=== PATIENT | male | born 1955 | race Caucasian/White ===

== ENCOUNTER 2020-11-27 12:58 | Inpatient (IN) | payer BC ==
[2020-11-27 16:35] LABS: BASO % 0.5 % (0-2.0); EOS % 0.1 % (0-4.5); HEMOGLOBIN 17.5 GM/dL (11.7-16.9); LYMPH % 11.8 % (8-40); MCH 33.2 pg (25.7-33.7); MCHC 35.8 g/dl (32.0-35.9); MEAN CELL VOLUME 92.8 fl (80-96); MEAN PLT VOLUME 7.5 fl (7.5-11.1); MONO % 2.5 % (3.8-10.2); NEUT % 85.1 % (42.8-82.8); PLATELET COUNT 102 K/MM3 (134-434); RBC 5.28 M/mm3 (4.00-5.60)
[2020-11-27 16:52] LABS: CHLORIDE 106 mmol/L (98-107); POTASSIUM 3.8 mmol/L (3.5-5.1); SODIUM 136 mmol/L (136-145)
[2020-11-27 16:54] LABS: CALCIUM 9.8 mg/dL (8.5-10.1)
[2020-11-27 16:55] LABS: ALBUMIN 4.3 g/dl (3.4-5.0); ANION GAP 4 MMOL/L (8-16); BLOOD UREA NITROGEN 14.6 mg/dL (7-18); CO2 26 mmol/L (21-32); GLUCOSE,RANDOM 123 mg/dL (74-106)
[2020-11-27 16:58] LABS: CREATININE 0.7 mg/dL (0.55-1.3); SGOT/AST 76 U/L (15-37); SGPT/ALT 227 U/L (13-61)
[2020-11-27 16:59] LABS: BILIRUBIN,TOTAL 0.9 mg/dL (0.2-1); TOT PROT 8.4 g/dl (6.4-8.2)
[2020-11-27 17:01] LABS: ALK PHOS 69 U/L (45-117)
[2020-11-27] MEDS ORDERED: morphine CARPU-JECT 4 MG/1 ML DISP.SYRIN IVPUSH ONE (17:05)
[2020-11-27] MEDS ORDERED: morphine SULFATE 4 MG/ML VIAL IVPUSH ONE (17:05)
[2020-11-27] MEDS ORDERED: morphine SULFATE 4 MG/ML VIAL ONE (17:08)
[2020-11-27] MEDS ORDERED: NICARDIPINE 25 MG in DEXTROSE 5%-WATER - 240 ML IVPB SCH (17:15)
[2020-11-27 17:30] LABS: ERYTHROCYTE SEDIMENTATION RATE 8 mm/hr (0-20)
[2020-11-27 18:08] LABS: INR 1.13 (0.83-1.09); PROTHROMBIN TIME (PATIENT) 13.6 SEC (9.7-13.0)
[2020-11-27 18:11] LABS: ACTIVATED PTT 33.8 SECONDS (25.2-36.5)
[2020-11-27] MEDS ORDERED: hydrALAZINE HCL 50 MG TABLET (FP) PO ONE (18:27)
[2020-11-27] MEDS ORDERED: hydrALAZINE HCL 20 MG/ML VIAL IVPUSH ONE (18:27)
[2020-11-27] MEDS: ENOXAPARIN NA (PORCINE) 40 MG/0.4 ML DISP.SYRIN SQ SCH (18:54)
[2020-11-27 19:55] LABS: EPI CELLS 12 /uL (0-25.1); HYALINE CASTS 2 /uL (0-3.1); URINE APPEARANCE CLEAR; URINE BACTERIA 143 /uL (0-1359); URINE BILIRUBIN 1+ (NEGATIVE); URINE COLOR DK YELLOW; URINE GLUCOSE (UA) NEGATIVE (NEGATIVE); URINE KETONE 1+ (NEGATIVE); URINE LEUK ESTERASE NEGATIVE (NEGATIVE); URINE NITRITE NEGATIVE (NEGATIVE); URINE PROTEIN 3+ (NEGATIVE); URINE RBC 11 /uL (0-23.9); URINE WBC 14 /uL (0-25.8)
[2020-11-27] MEDS: MUPIROCIN 2% TOPICAL OINTMENT FOR DECOLONIZATION NS SCH (22:36)
[2020-11-27] MEDS: CHLORHEXIDINE GLUCONATE 4% CLEANSER FOR DECOLONIZATION TP SCH (22:37)
[2020-11-27] MEDS: NICARDIPINE 25 MG in DEXTROSE 5%-WATER - 240 ML IVPB SCH (22:40)
[2020-11-28 07:08] LABS: HEMATOCRIT 48.9 % (35.4-49); HEMOGLOBIN 17.5 GM/dL (11.7-16.9); MCH 33.3 pg (25.7-33.7); MCHC 35.7 g/dl (32.0-35.9); MEAN CELL VOLUME 93.3 fl (80-96); MEAN PLT VOLUME 7.5 fl (7.5-11.1); PLATELET COUNT 94 K/MM3 (134-434); RBC 5.25 M/mm3 (4.00-5.60); RDW 13.9 % (11.9-15.9)
[2020-11-28 07:19] LABS: ACTIVATED PTT 38.5 SECONDS (25.2-36.5)
[2020-11-28 07:20] LABS: INR 1.1 (0.83-1.09); PROTHROMBIN TIME (PATIENT) 13.3 SEC (9.7-13.0)
[2020-11-28 07:51] LABS: POTASSIUM 3.3 mmol/L (3.5-5.1)
[2020-11-28 07:53] LABS: BLOOD UREA NITROGEN 14.7 mg/dL (7-18); CALCIUM 9.4 mg/dL (8.5-10.1)
[2020-11-28 07:54] LABS: MAGNESIUM 2.2 mg/dL (1.8-2.4)
[2020-11-28 07:57] LABS: CREATININE 0.7 mg/dL (0.55-1.3); PHOSPHOROUS 2.8 mg/dL (2.5-4.9)
[2020-11-28] MEDS: KCL 10 MEQ IVPB 10 MEQ/100 ML INFUS.BAG IVPB SCH ×3 (09:10→11:37)
[2020-11-28] MEDS: MUPIROCIN 2% TOPICAL OINTMENT FOR DECOLONIZATION NS SCH ×2 (10:02→22:34)
[2020-11-28] MEDS: ENOXAPARIN NA (PORCINE) 40 MG/0.4 ML DISP.SYRIN SQ SCH (10:04)
[2020-11-28 12:14] LABS: POTASSIUM 3.1 mmol/L (3.5-5.1)
[2020-11-28 12:16] LABS: CALCIUM 9.3 mg/dL (8.5-10.1)
[2020-11-28 12:17] LABS: ALBUMIN 3.9 g/dl (3.4-5.0); BLOOD UREA NITROGEN 12.9 mg/dL (7-18)
[2020-11-28 12:20] LABS: CREATININE 0.6 mg/dL (0.55-1.3)
[2020-11-28 12:22] LABS: BILIRUBIN,TOTAL 1.3 mg/dL (0.2-1); TOT PROT 7.8 g/dl (6.4-8.2)
[2020-11-28] MEDS: NICARDIPINE 25 MG in DEXTROSE 5%-WATER - 240 ML IVPB SCH (13:05)
[2020-11-28] MEDS ORDERED: CARVEDILOL 6.25 MG TABLET (FP) PO SCH (15:43)
[2020-11-28] MEDS: CHLORHEXIDINE GLUCONATE 4% CLEANSER FOR DECOLONIZATION TP SCH (22:34)
[2020-11-29] MEDS: NICARDIPINE 25 MG in DEXTROSE 5%-WATER - 240 ML IVPB SCH ×2 (01:18→02:50)
[2020-11-29 06:50] LABS: HEMATOCRIT 48.3 % (35.4-49); MCH 32.8 pg (25.7-33.7); MCHC 35.3 g/dl (32.0-35.9); MEAN CELL VOLUME 93.1 fl (80-96); MEAN PLT VOLUME 7.8 fl (7.5-11.1); PLATELET COUNT 93 K/MM3 (134-434); RBC 5.19 M/mm3 (4.00-5.60); RDW 13.7 % (11.9-15.9); WHITE BLOOD COUNT 11.5 K/mm3 (4.0-10.0)
[2020-11-29 07:10] LABS: POTASSIUM 3.8 mmol/L (3.5-5.1)
[2020-11-29 07:18] LABS: ALBUMIN 3.5 g/dl (3.4-5.0); BLOOD UREA NITROGEN 16.2 mg/dL (7-18)
[2020-11-29 07:19] LABS: BILIRUBIN,TOTAL 1.4 mg/dL (0.2-1)
[2020-11-29 07:20] LABS: TOT PROT 7.3 g/dl (6.4-8.2)
[2020-11-29 07:21] LABS: CREATININE 0.6 mg/dL (0.55-1.3)
[2020-11-29] MEDS ORDERED: niCARdipine HCL 25 MG/10 ML AMPUL IVPB ONE ×2 (07:40→18:08)
[2020-11-29] MEDS: MUPIROCIN 2% TOPICAL OINTMENT FOR DECOLONIZATION NS SCH ×2 (10:51→22:47)
[2020-11-29] MEDS: ENOXAPARIN NA (PORCINE) 40 MG/0.4 ML DISP.SYRIN SQ SCH (10:51)
[2020-11-29] MEDS ORDERED: MORPHINE SULFATE 2 MG/ML VIAL ONE (11:07)
[2020-11-29] MEDS: MORPHINE SULFATE 2 MG/ML VIAL IVPUSH PRN ×2 (11:08→20:39)
[2020-11-29] MEDS ORDERED: LOSARTAN POTASSIUM 50 MG TABLET PO SCH (12:30)
[2020-11-29 20:56] VITALS: BMI 31.6
[2020-11-29] MEDS: CHLORHEXIDINE GLUCONATE 4% CLEANSER FOR DECOLONIZATION TP SCH (22:47)
[2020-11-29] MEDS: CARVEDILOL 12.5 MG TABLET (FP) PO SCH (22:47)
[2020-11-30] MEDS: MORPHINE SULFATE 2 MG/ML VIAL IVPUSH PRN ×2 (04:16→10:22)
[2020-11-30] MEDS: NICARDIPINE 25 MG in DEXTROSE 5%-WATER - 240 ML IVPB SCH (04:25)
[2020-11-30 06:29] LABS: HEMATOCRIT 44.8 % (35.4-49); HEMOGLOBIN 16.3 GM/dL (11.7-16.9); MCH 33.8 pg (25.7-33.7); MCHC 36.4 g/dl (32.0-35.9); MEAN PLT VOLUME 7.6 fl (7.5-11.1); PLATELET COUNT 94 K/MM3 (134-434); RBC 4.81 M/mm3 (4.00-5.60); RDW 13.9 % (11.9-15.9); WHITE BLOOD COUNT 10.1 K/mm3 (4.0-10.0)
[2020-11-30 06:54] LABS: POTASSIUM 3.6 mmol/L (3.5-5.1)
[2020-11-30 06:55] LABS: ALBUMIN 3.4 g/dl (3.4-5.0); CALCIUM 8.6 mg/dL (8.5-10.1)
[2020-11-30 06:59] LABS: CREATININE 0.7 mg/dL (0.55-1.3)
[2020-11-30 07:01] LABS: TOT PROT 6.8 g/dl (6.4-8.2)
[2020-11-30] MEDS: ENOXAPARIN NA (PORCINE) 40 MG/0.4 ML DISP.SYRIN SQ SCH (09:52)
[2020-11-30] MEDS: CARVEDILOL 12.5 MG TABLET (FP) PO SCH ×2 (09:52→22:20)
[2020-11-30] MEDS: MUPIROCIN 2% TOPICAL OINTMENT FOR DECOLONIZATION NS SCH ×2 (09:53→22:20)
[2020-11-30] MEDS: LOSARTAN POTASSIUM 50 MG TABLET PO SCH (09:53)
[2020-11-30] MEDS: CHLORHEXIDINE GLUCONATE 4% CLEANSER FOR DECOLONIZATION TP SCH (22:20)
[2020-12-01] MEDS: MORPHINE SULFATE 2 MG/ML VIAL IVPUSH PRN ×3 (00:16→19:00)
[2020-12-01 07:25] LABS: BASO % 0.4 % (0-2.0); EOS % 3.1 % (0-4.5); HEMATOCRIT 48.6 % (35.4-49); HEMOGLOBIN 17.2 GM/dL (11.7-16.9); LYMPH % 27.9 % (8-40); MCH 33.5 pg (25.7-33.7); MCHC 35.3 g/dl (32.0-35.9); MEAN CELL VOLUME 94.9 fl (80-96); MEAN PLT VOLUME 8.1 fl (7.5-11.1); MONO % 8.4 % (3.8-10.2); NEUT % 60.2 % (42.8-82.8); PLATELET COUNT 114 K/MM3 (134-434); RBC 5.12 M/mm3 (4.00-5.60); RDW 13.9 % (11.9-15.9); WHITE BLOOD COUNT 11.5 K/mm3 (4.0-10.0)
[2020-12-01] MEDS ORDERED: GENTAMICIN SO4 80 MG/2 ML VIAL ONE ×2 (07:27→11:07)
[2020-12-01] MEDS ORDERED: THROMBIN (BOVINE) 5,000 UNIT VIAL TP ONE ×2 (07:35→10:19)
[2020-12-01 07:49] LABS: POTASSIUM 4.4 mmol/L (3.5-5.1)
[2020-12-01] MEDS ORDERED: LIDOCAINE 1%/EPI 1:100000 (50 ML MULTI DOSE VIAL) ONE (07:53)
[2020-12-01 07:57] LABS: ALBUMIN 3.6 g/dl (3.4-5.0); BLOOD UREA NITROGEN 31.1 mg/dL (7-18); MAGNESIUM 2.2 mg/dL (1.8-2.4)
[2020-12-01 08:01] LABS: PHOSPHOROUS 4.3 mg/dL (2.5-4.9)
[2020-12-01 08:02] LABS: BILIRUBIN,TOTAL 0.8 mg/dL (0.2-1); TOT PROT 7.6 g/dl (6.4-8.2)
[2020-12-01] MEDS ORDERED: PROPOFOL 20 ML ONE (08:46)
[2020-12-01] MEDS ORDERED: ROCURONIUM BROMIDE 50 MG/5 ML SYRINGE ONE ×2 (08:46→09:59)
[2020-12-01] MEDS ORDERED: MIDAZOLAM HCL 2 MG/2 ML SINGLE DOSE VIAL ONE (08:46)
[2020-12-01] MEDS: CARVEDILOL 12.5 MG TABLET (FP) PO SCH ×2 (08:50→09:00)
[2020-12-01] MEDS: MUPIROCIN 2% TOPICAL OINTMENT FOR DECOLONIZATION NS SCH ×2 (08:50→22:14)
[2020-12-01] MEDS: LOSARTAN POTASSIUM 50 MG TABLET PO SCH ×2 (08:51→10:01)
[2020-12-01] MEDS ORDERED: VANCOMYCIN 1,000 MG VIAL (RESTRICTED TO ID ONLY) ONE (08:54)
[2020-12-01] MEDS ORDERED: ceFAZolin SODIUM 1 GM VIAL ONE (08:54)
[2020-12-01] MEDS ORDERED: SODIUM CHLORIDE 0.9% P/F 10 ML VIAL IJ ONE (08:55)
[2020-12-01] MEDS ORDERED: ceFAZolin SODIUM 1 GM VIAL IVPB ONE ×2 (09:20)
[2020-12-01] MEDS ORDERED: VANCOMYCIN 1,000 MG VIAL (RESTRICTED TO ID ONLY) IVPB ONE ×2 (09:25)
[2020-12-01] MEDS ORDERED: ONDANSETRON 4 MG/2 ML VIAL ONE (09:49)
[2020-12-01] MEDS ORDERED: DEXAMETHASONE SOD PHOSPHATE 4 MG/1 ML VIAL ONE (09:49)
[2020-12-01] MEDS ORDERED: TRANEXAMIC ACID 1000 MG/10 ML VIAL ONE (09:56)
[2020-12-01] MEDS ORDERED: HYDROGEN PEROXIDE 473 ML PO ONE ×2 (10:19)
[2020-12-01] MEDS ORDERED: BACITRACIN 50,000 UNITS VIAL TP ONE ×2 (10:19)
[2020-12-01] MEDS ORDERED: GENTAMICIN SO4 80 MG/2 ML VIAL IVPB ONE ×2 (10:19)
[2020-12-01] MEDS ORDERED: GLYCOPYRROLATE 0.2 MG/1 ML VIAL ONE (12:33)
[2020-12-01] MEDS ORDERED: NEOSTIGMINE METHYLSULFATE 0.5 MG/1 ML - 10 ML MDV ONE (12:34)
[2020-12-01] MEDS ORDERED: BUPIVACAINE LIPOSOME/PF (EXPAREL) 266 MG/20 ML VIAL NR ONE ×2 (12:45→13:06)
[2020-12-01] MEDS ORDERED: BUPIVACAINE HCL/PF 0.5% (5MG/ML) 10 ML VIAL NR ONE ×2 (12:45→13:06)
[2020-12-01] MEDS ORDERED: oxyCODONE HCL 5 MG TABLET PO PRN ×2 (13:54)
[2020-12-01] MEDS ORDERED: HYDROmorphone HCl 2 MG/ML VIAL SQ PRN ×2 (13:54→14:04)
[2020-12-01] MEDS ORDERED: ONDANSETRON 4 MG/2 ML VIAL IVPUSH PRN ×2 (13:54→13:58)
[2020-12-01] MEDS ORDERED: PROMETHAZINE HCL 25 MG/1 ML VIAL IVPB PRN (13:58)
[2020-12-01] MEDS ORDERED: LACTATED RINGERS SOLUTION 1,000 ML IV SCH ×3 (14:00→16:45)
[2020-12-01] MEDS: CEFAZOLIN 2 GM/D5W 2 GM/50 ML ML IVPB SCH ×2 (16:51→20:29)
[2020-12-01] MEDS ORDERED: CARVEDILOL 12.5 MG TABLET (FP) PO SCH (18:33)
[2020-12-01] MEDS: CARVEDILOL 25 MG TABLET (FP) PO SCH ×2 (18:43→22:20)
[2020-12-01] MEDS ORDERED: LABETALOL HCL 5 MG/1 ML (100MG/20 ML VIAL) IVPUSH PRN (20:15)
[2020-12-01] MEDS ORDERED: LABETALOL HCL 5 MG/1 ML (100MG/20 ML VIAL) IVPUSH ONE (20:22)
[2020-12-01] MEDS ORDERED: CARVEDILOL 25 MG TABLET (FP) PO SCH (22:00)
[2020-12-01] MEDS ORDERED: MORPHINE SULFATE 2 MG/ML VIAL IVPUSH ONE (22:13)
[2020-12-01] MEDS: CHLORHEXIDINE GLUCONATE 4% CLEANSER FOR DECOLONIZATION TP SCH (22:15)
[2020-12-02] MEDS: MORPHINE SULFATE 2 MG/ML VIAL IVPUSH PRN ×4 (01:26→22:58)
[2020-12-02] MEDS: CEFAZOLIN 2 GM/D5W 2 GM/50 ML ML IVPB SCH (02:00)
[2020-12-02] MEDS ORDERED: TERAZOSIN HCL 2 MG CAPSULE PO SCH ×2 (02:56→22:00)
[2020-12-02] MEDS ORDERED: ALPRAZolam 0.25 MG TABLET PO ONE ×2 (05:13→22:00)
[2020-12-02] MEDS ORDERED: TERAZOSIN HCL 1 MG CAPSULE PO SCH (06:27)
[2020-12-02] MEDS: CARVEDILOL 25 MG TABLET (FP) PO SCH ×3 (06:39→21:25)
[2020-12-02 06:56] LABS: HEMATOCRIT 41.1 % (35.4-49); HEMOGLOBIN 14.9 GM/dL (11.7-16.9); MCH 33.3 pg (25.7-33.7); MCHC 36.4 g/dl (32.0-35.9); MEAN CELL VOLUME 91.6 fl (80-96); MEAN PLT VOLUME 7.8 fl (7.5-11.1); PLATELET COUNT 152 K/MM3 (134-434); RBC 4.49 M/mm3 (4.00-5.60); RDW 13.5 % (11.9-15.9); WHITE BLOOD COUNT 17.6 K/mm3 (4.0-10.0)
[2020-12-02 07:27] LABS: ALBUMIN 3.1 g/dl (3.4-5.0); CALCIUM 8.6 mg/dL (8.5-10.1); CREATININE 0.6 mg/dL (0.55-1.3)
[2020-12-02 07:28] LABS: BLOOD UREA NITROGEN 19.8 mg/dL (7-18)
[2020-12-02 07:30] LABS: BILIRUBIN,TOTAL 0.7 mg/dL (0.2-1); TOT PROT 6.6 g/dl (6.4-8.2)
[2020-12-02] MEDS ORDERED: PHENTOLAMINE MESYLATE 5 MG/2 ML VIAL IVPUSH ONE (07:43)
[2020-12-02] MEDS: LOSARTAN POTASSIUM 50 MG TABLET PO SCH (09:21)
[2020-12-02] MEDS: MUPIROCIN 2% TOPICAL OINTMENT FOR DECOLONIZATION NS SCH (09:21)
[2020-12-02] MEDS: ENOXAPARIN NA (PORCINE) 40 MG/0.4 ML DISP.SYRIN SQ SCH (09:22)
[2020-12-02] MEDS: NICARDIPINE 25 MG in DEXTROSE 5%-WATER - 240 ML IVPB SCH ×4 (12:26→18:15)
[2020-12-02] MEDS ORDERED: PT OWN MED DRAWER 7, Y5N ONE ×2 (12:29→16:25)
[2020-12-02] MEDS: DOXAZOSIN MESYLATE 1 MG TABLET PO SCH (12:33)
[2020-12-02] MEDS ORDERED: hydrALAZINE HCL 20 MG/ML VIAL IVPUSH ONE (20:14)
[2020-12-02] MEDS: CHLORHEXIDINE GLUCONATE 4% CLEANSER FOR DECOLONIZATION TP SCH (21:25)
[2020-12-03 07:56] LABS: POTASSIUM 3.8 mmol/L (3.5-5.1)
[2020-12-03 08:06] LABS: ALBUMIN 2.9 g/dl (3.4-5.0); CALCIUM 8.1 mg/dL (8.5-10.1)
[2020-12-03 08:07] LABS: BLOOD UREA NITROGEN 16.9 mg/dL (7-18); MAGNESIUM 1.7 mg/dL (1.8-2.4)
[2020-12-03 08:10] LABS: CREATININE 0.5 mg/dL (0.55-1.3); PHOSPHOROUS 2.4 mg/dL (2.5-4.9)
[2020-12-03 08:11] LABS: BILIRUBIN,TOTAL 1.1 mg/dL (0.2-1)
[2020-12-03] MEDS ORDERED: SODIUM CHLORIDE 1,000 ML IV SCH (08:30)
[2020-12-03 08:51] LABS: HEMATOCRIT 38.7 % (35.4-49); HEMOGLOBIN 14.3 GM/dL (11.7-16.9); MCH 33.2 pg (25.7-33.7); MEAN CELL VOLUME 89.7 fl (80-96); MEAN PLT VOLUME 7.7 fl (7.5-11.1); PLATELET COUNT 138 K/MM3 (134-434); RBC 4.31 M/mm3 (4.00-5.60); RDW 13.2 % (11.9-15.9); WHITE BLOOD COUNT 12.8 K/mm3 (4.0-10.0)
[2020-12-03] MEDS ORDERED: PT OWN MED DRAWER 7, Y5N ONE ×2 (10:42→15:10)
[2020-12-03] MEDS: ENOXAPARIN NA (PORCINE) 40 MG/0.4 ML DISP.SYRIN SQ SCH (10:47)
[2020-12-03] MEDS: LOSARTAN POTASSIUM 50 MG TABLET PO SCH (10:47)
[2020-12-03] MEDS: CARVEDILOL 25 MG TABLET (FP) PO SCH ×2 (10:47→21:56)
[2020-12-03] MEDS: DOXAZOSIN MESYLATE 1 MG TABLET PO SCH (11:28)
[2020-12-03] MEDS ORDERED: NIFEdipine E.R. 30 MG TABLET PO SCH (12:30)
[2020-12-03] MEDS ORDERED: MAGNESIUM SULF 50% (8.12 MEQ/2 ML-1 GM VIAL) IVPB ONE (12:45)
[2020-12-03] MEDS ORDERED: POTASSIUM PHOSPHATE 15 MM in DEXTROSE 5%-WATER - 250 ML IVPB ONE (13:00)
[2020-12-03] MEDS ORDERED: DOXAZOSIN MESYLATE 1 MG TABLET PO ONE (13:30)
[2020-12-03 14:34] LABS: POTASSIUM 3.5 mmol/L (3.5-5.1)
[2020-12-03 14:36] LABS: CALCIUM 7.2 mg/dL (8.5-10.1)
[2020-12-03 14:37] LABS: BLOOD UREA NITROGEN 15.4 mg/dL (7-18)
[2020-12-03 14:40] LABS: CREATININE 0.4 mg/dL (0.55-1.3)
[2020-12-03] MEDS ORDERED: NIFEdipine E.R 60 MG TABLET PO SCH (18:23)
[2020-12-03] MEDS: NICARDIPINE 25 MG in DEXTROSE 5%-WATER - 240 ML IVPB SCH ×2 (21:00→23:33)
[2020-12-04] MEDS: LOSARTAN POTASSIUM 50 MG TABLET PO SCH (09:48)
[2020-12-04] MEDS: CARVEDILOL 25 MG TABLET (FP) PO SCH ×2 (09:48→22:23)
[2020-12-04] MEDS ORDERED: PT OWN MED DRAWER 7, Y5N ONE (09:52)
[2020-12-04] MEDS: ENOXAPARIN NA (PORCINE) 40 MG/0.4 ML DISP.SYRIN SQ SCH (09:52)
[2020-12-04] MEDS: DOXAZOSIN MESYLATE 1 MG TABLET PO SCH (09:53)
[2020-12-04] MEDS ORDERED: DOXAZOSIN MESYLATE 1 MG TABLET PO SCH (10:00)
[2020-12-05] MEDS ORDERED: DOCUSATE SODIUM 100 MG CAPSULE (FP) PO PRN (06:17)
[2020-12-05] MEDS ORDERED: ACETAMINOPHEN 325 MG TABLET (FP) PO ONE (06:30)
[2020-12-05] MEDS ORDERED: oxyCODONE HCL 5 MG TABLET PO ONE (06:30)
[2020-12-05 06:45] LABS: BLOOD UREA NITROGEN 19.6 mg/dL (7-18)
[2020-12-05 06:48] LABS: CREATININE 0.7 mg/dL (0.55-1.3)
[2020-12-05 06:50] LABS: BILIRUBIN,TOTAL 0.8 mg/dL (0.2-1); TOT PROT 6.3 g/dl (6.4-8.2)
[2020-12-05 06:55] LABS: CALCIUM 8.9 mg/dL (8.5-10.1)
[2020-12-05 07:50] LABS: HEMATOCRIT 40.4 % (35.4-49); HEMOGLOBIN 14.7 GM/dL (11.7-16.9); MCH 33.6 pg (25.7-33.7); MCHC 36.4 g/dl (32.0-35.9); MEAN CELL VOLUME 92.5 fl (80-96); MEAN PLT VOLUME 8.1 fl (7.5-11.1); PLATELET COUNT 138 K/MM3 (134-434); RBC 4.37 M/mm3 (4.00-5.60); RDW 13.4 % (11.9-15.9); WHITE BLOOD COUNT 9.7 K/mm3 (4.0-10.0)
[2020-12-05] MEDS ORDERED: PT OWN MED DRAWER 7, Y5N ONE (09:02)
[2020-12-05] MEDS: NIFEdipine E.R. 30 MG TABLET PO SCH ×2 (09:07→11:18)
[2020-12-05] MEDS: ENOXAPARIN NA (PORCINE) 40 MG/0.4 ML DISP.SYRIN SQ SCH (09:07)
[2020-12-05] MEDS: CARVEDILOL 25 MG TABLET (FP) PO SCH (09:13)
[2020-12-05] MEDS: DOXAZOSIN MESYLATE 1 MG TABLET PO SCH (09:13)
[2020-12-05] MEDS: LOSARTAN POTASSIUM 50 MG TABLET PO SCH (09:14)
[2020-12-05 12:05] VITALS: TEMP 97.6
[2020-12-05 13:08] VITALS: BP 121/83; PULSE 88
== END 2020-12-05 13:30 | disposition home or self-care (01) | DRG 464 ==
LOC: JER 12:58 → JERBED 17:31 → JICU 18:28
PROVIDERS: ADMIT Internal Medicine Pulmonary Disease; ATTEND Internal Medicine Pulmonary Disease
PROC: 00N00ZZ Release Brain, Open Approach (ICD-10-PCS; 2020-12-01)
PROC: B01BZZZ Fluoroscopy of Spinal Cord (ICD-10-PCS; 2020-12-01)
PROC: 0PS304Z Reposition Cervical Vertebra with Internal Fixation Device, Open Approach (ICD-10-PCS; 2020-12-01)
PROC: 4A11X4G Monitoring of Peripheral Nervous Electrical Activity, Intraoperative, External Approach (ICD-10-PCS; 2020-12-01)
PROC: 0JX70ZC Transfer Back Subcutaneous Tissue and Fascia with Skin, Subcutaneous Tissue and Fascia, Open Approach (ICD-10-PCS; 2020-12-01)
PROC: 0RG2071 Fusion of 2 or more Cervical Vertebral Joints with Autologous Tissue Substitute, Posterior Approach, Posterior Column, Open Approach (ICD-10-PCS; principal; 2020-12-01 08:00)
DX: M47.12 Other spondylosis with myelopathy, cervical region (principal); G95.89 Other specified diseases of spinal cord; I16.1 Hypertensive emergency; I24.8 Other forms of acute ischemic heart disease; E87.1 Hypo-osmolality and hyponatremia; M40.292 Other kyphosis, cervical region; M50.20 Other cervical disc displacement, unspecified cervical region; M51.26 Other intervertebral disc displacement, lumbar region; K76.0 Fatty (change of) liver, not elsewhere classified; E87.6 Hypokalemia; R94.5 Abnormal results of liver function studies; D69.6 Thrombocytopenia, unspecified; R22.1 Localized swelling, mass and lump, neck
CPT/HCPCS: 36415; 36430; 70450-TC; 70553-TC; 71045-TC-FY; 72125-TC; 72156-TC; 76000-TC-FY; 76705-TC; 80048; 80053; 80074; 81003; 82384; 82550; 82962; 83036; 83735; 83835; 84100; 84436; 84443; 84484; 85025; 85027; 85610; 85651; 85730; 86140; 86850; 86900; 86901; 86922; 93005; 93010; 93306-TC; 94010; 97116-GP; 97161-GP; 99285-25; C9803; J1644; P9034; U0003